=== PATIENT | male | born 1960 | race Caucasian/White ===

== ENCOUNTER → 2017-01-23 | Outpatient (CLI) | payer OTHER ==
[~2017-01-23] MED LIST: ASPI-557 PO; LOSA1TAB95 PO; NAPR220T61 PO; NEBI5TAB8 PO; TEST75GE TD
--- NOTE | 2017-01-23 17:40 | DI ---
Indication: ITS.REASON: M25.561 PAIN IN RIGHT KNEE; M25.562 PAIN IN LEFT KNEE PROCEDURE: KNEE BILAT 3 VIEWS: Encounter: Initial Comparison: None Findings: Right knee: No acute fracture or dislocation. There is lateral subluxation of the tibia relative to the femur. Moderate medial and lateral compartment joint space narrowing with mild patellofemoral compartment joint space loss. Tricompartmental osteophytes. No joint effusion. Left knee: No acute fracture or dislocation. Mild medial compartment joint space narrowing. Patellofemoral compartment and lateral compartment joint spaces are maintained. No joint effusion. Impression: Right knee: Mild to moderate tricompartmental osteoarthritis. Left knee: Mild medial osteoarthritis. .
== END ==
LOC: IMA 16:52
PROVIDERS: ATTEND Family Medicine
DX: M17.0 Bilateral primary osteoarthritis of knee (principal); M25.561 Pain in right knee; M25.562 Pain in left knee

== ENCOUNTER 2017-11-16 07:30 | Inpatient (IN) ==
[~2017-11-16 07:30] MED LIST changes: +ACETAMINOPHEN 500 MG TABLET PO ONE; -ASPI-557 PO; +DEXAMETHASONE 4 MG/ML INJECTION IVP ONE; +FAMOTIDINE PB 20 MG/50 ML BAG IV ONE; +LIDOCAINE 1% (10mg/ml) 2mL INJ PF SDV ID ONE; -LOSA1TAB95 PO; +MELOXICAM 15 MG TABLET PO ONE; +METOCLOPRAMIDE 10mg/2ml INJECTION IVP ONE; -NAPR220T61 PO; -NEBI5TAB8 PO; +ONDANSETRON 4 MG/2 ML INJECTION IVP ONE; -TEST75GE TD; +TRANEXAMIC ACID 1,000 MG in NS 100 ML IV ONE
[2017-11-16] MEDS ORDERED: EPINEPHrine PF 0.25 MG, BUPIVACAINE 0.25% PF 30 ML, MORPHINE SULFATE 15 MG, KETOROLAC I... OPSITE ONE (08:00)
[2017-11-16] MEDS ORDERED: CEFAZOLIN 1 G INJECTION IVP ONE (08:10)
[2017-11-16 08:16] VITALS: BMI 34.4
[2017-11-16] MEDS: LR 1,000 ML IV SCH ×2 (08:48→11:33)
[2017-11-16] MEDS ORDERED: SALINE FLUSH 10ml SYRINGE IV PRN (09:07)
[2017-11-16] MEDS ORDERED: NOZIN NASAL SWAB NAS ONE ×2 (09:07→13:58)
[2017-11-16] MEDS ORDERED: VANCOMYCIN 1,000 MG INJECTION ONE (10:12)
--- NOTE | 2017-11-16 10:21 | Anesthesia Preoperative Report ---
Anesthesia Preoperative Record - Date and Time Date: 11/16/17 Preoperative Diagnosis: Lt TKA M17.12 Proposed Procedure: robot assist TKA NPO Since Date: 11/16/17 NPO Since Time: 05:00 Allergies/Adverse Reactions: Allergies Allergy/AdvReac Type Severity Reaction Status Date / Time meperidine Allergy Intermediate INCREASE BP Verified 11/16/17 08:28 - Vital Signs Vital Signs: Temperature 98.0 F 11/16/17 08:15 Pulse Rate 56 L 11/16/17 08:35 Respiratory Rate 13 11/16/17 08:15 Blood Pressure 159/86 H 11/16/17 08:15 Pulse Oximetry 95 11/16/17 08:15 Height and Weight: Height 1.75 m Weight 106 kg Body Mass Index 34.4 - Medications Inpatient Medications: Current Medications Lactated Ringer's (Lactated Ringers) 1,000 mls @ 50 mls/hr IV .Q20H NIA Last Admin: 11/16/17 08:48 Dose: 50 mls/hr Sodium Chloride (Iv Flush) 10 - 80 ml IV PRN PRN PRN Reason: Fl[place] Home Medications: Home Medications Medication Instructions Recorded Confirmed Type Losartan/Hctz 100/25 [Hyzaar 1 tab PO DAILY 04/16/17 11/16/17 History 100/25] Nebivolol [Bystolic] 5 mg PO DAILY 04/16/17 11/16/17 History Nitroglycerin 0.4 mg SL Q5MIN3 PRN 04/16/17 11/16/17 History Acetaminophen [Tylenol] 1,000 mg PO Q5H PRN 10/24/17 11/16/17 History Allopurinol [Zyloprim] 300 mg PO HS 10/24/17 11/16/17 History Cholecalciferol (Vitamin D3) 1 tab PO DAILY 10/24/17 11/16/17 History [Vitamin D-400] Tramadol [Ultram] 50 mg PO Q6HR PRN 10/24/17 11/16/17 History - Medical History Respiratory: Reports: Asthma (activity induced), Sleep Apnea Cardiovascular: Reports: Angina (HX OF), Hypertension Gastrointestional: Reports: Gastroesophageal Reflux Disease Neuro/Musculoskeletal: Reports: HX.MS.OSAR, Back Problems - Surgical History HEENT Surgeries: Reports: Oral Surgery (WISDOM TEETH) Cardiac Surgeries/Treatments: Reports: Cardiac Catheterization Respiratory Surgery/Treatments: Reports: CPAP Use GI Surgery/Treatments: Reports: Colonoscopy (polyps-2 years ago) Musculoskeletal Surgery/Tx: Reports: Knee Arthroscopy (meniscus repair right knee), Other (lumbar partial discectomy-L5) - Social History Smoking Status: Never smoker Substance Use Type: does not use Alcohol Intake Frequency: holidays/special occasions only - Pertinent Findings Laboratory: CBC and BMP 11/16/17 08:15 BMP 11/16/17 08:15 Sodium 142 Potassium 3.8 Chloride 102 Carbon Dioxide 29 BUN 20.0 Creatinine 1.1 Glucose 93 Calcium 10.3 H EKG: Sinus Bradycardia - Physical Exam Respiratory Exam: Present: lungs clear Cardiovascular Exam: Present: regular rate and rhythm, no murmur - Airway Assessment Mallampati Score: I TMD: 3 Fingerbreadths Neck Extension: good Teeth: chipped teeth/crowns Overall Assessment: no airway concerns - ASA ASA Score: 2 - Plan Regional/Trunk Block: Spinal - Discussion Discussion: Discussed risks/options/alternatives of anesthesia and questions answered. Patient consents. Nursing pain assessment noted. Present for Discussion: spouse Attestation Statement: Prior to the delivery of any anesthetic medication, I examined the patient, developed the plan, obtained the patient's consent and discussed the risk and benefits of the procedure with the patient/guardian. - Additional Information Seen by Anesthesia: Yes
[2017-11-16] MEDS ORDERED: VANCOMYCIN 1,000 MG INJECTION IAR ONE ×2 (10:34→11:43)
--- NOTE | 2017-11-16 12:34 | Operative Note ---
- Procedure Preoperative Diagnosis: Left knee primary degenerative joint disease Postoperative Diagnosis: Same as preoperative diagnosis. Surgeon: Winston Mendez MD Access Manager: Avelino Mendoza Complications: None. Anesthesia: Spinal. Estimated Blood Loss: See Anesthesia Record. Fluids: Please see Anesthesia Record. Desciption of Procedure: Mr. Wadr and his left knee were identified and marked in the preoperative holding area. He was brought back to the operating suite after a saphenous nerve block was placed in the preoperative holding area. Spinal anesthetic was administered and he was placed supine on the operating table. The left lower extremity was prepped and draped in my normal sterile fashion. Timeout was performed. The [employer] robot was used during the surgery. He had a fixed varus deformity. A standard anterior midline incision followed by medial parapatellar arthrotomy was performed. Anterior fat pad and meniscus were removed. The patella was resurfaced to a size 32. Tibial and femoral arrays were placed both within the original incision. Checkpoints were then placed both in the femur and the tibia. The bone was then registered with the [employer] robot. Osteophytes were removed and gaps were captured both 90 and 0 with correction. The [employer] robotic software was utilized to obtain 18 mm gaps throughout. The [employer] robotic arm was then used to assist with the bone cuts. Posterior osteophytes and remaining meniscus were removed. Trial components were placed. We used a 6 femur and a 6 tibia with a 9 mm spacer. He tracked well and was well balanced throughout range of motion. The tibia was stamped at the proper rotation. Trial components fit well and bone quality was adequate so we proceeded with press-fit components. Components were press-fit into place. A final spacer was also placed. The knee was ranged one more time to ensure good stability, balance and patellar tracking. 1 g of vancomycin powder was then placed into the knee joint. The capsulotomy was then closed with #1 Vicryl. I then left my aquatics assistant department head to close the subcutaneous tissue with 2-0 Vicryl. Running 4-0 Monocryl will be used in the subcuticular layer. Dermabond will be used on the skin followed by sterile dressing. After drapes are removed patient will be taken to recovery room under the care of anesthesia.
--- NOTE | 2017-11-16 13:49 | Anesthesia Postoperative Note ---
- Date and Time Date: 11/16/17 Time: 13:49 - Status Patient Participated in Evaluation: Patient Participated in Person Vital Signs: Temperature 97.4 F 11/16/17 13:45 Pulse Rate 56 L 11/16/17 13:45 Respiratory Rate 20 11/16/17 13:45 Blood Pressure 105/65 11/16/17 13:45 Pulse Oximetry 99 11/16/17 13:45 Respiratory Function: Airway Patent Cardiovascular Function: Regular Pulse EKG: Sinus Rhythm Mental Status: Alert and Oriented Pain Intensity: 0 Hydration: IV Infusing Complications During Recover: None Apparent - Follow-Up Instructions Instructions: Per Surgeon
[2017-11-16] MEDS ORDERED: ONDANSETRON 4 MG/2 ML INJECTION IVP PRN (13:58)
[2017-11-16] MEDS ORDERED: LORazepam 1 MG TABLET PO PRN (13:58)
[2017-11-16] MEDS ORDERED: DiphenhydrAMINE 50 MG/ML INJECTION IVP PRN (13:58)
[2017-11-16] MEDS ORDERED: NITROGLYCERIN 0.4 MG SUBLINGUAL TABLET SL PRN (13:58)
[2017-11-16] MEDS ORDERED: DiphenhydrAMINE 25 MG CAPSULE PO PRN (13:58)
[2017-11-16] MEDS ORDERED: NAPROXEN 220 MG TABLET PO PRN (13:58)
[2017-11-16] MEDS: ACETAMINOPHEN 325 MG TABLET PO SCH ×3 (14:05→22:22)
[2017-11-16] MEDS: NS 1,000 ML IV SCH (14:05)
[2017-11-16] MEDS: NOZIN NASAL SWAB NAS SCH ×2 (14:06→22:21)
--- NOTE | 2017-11-16 14:12 | XRay Report ---
Indication: postoperative image PROCEDURE: XR knee LT 2V: Encounter: Initial Comparison: August 21, 2017 Findings: Postoperative changes of left total knee replacement are seen. There is expected postoperative subcutaneous gas. No evidence of hardware failure or acute fracture. No retained radiopaque surgical instruments or sponges. Overlying material causing artifact. Impression: New left total knee prosthesis without evidence of immediate complication. .
[2017-11-16] MEDS: CEFAZOLIN 2 G in NS 100 ML IV SCH (18:40)
[2017-11-16] MEDS: DEXAMETHASONE 20 MG/5 ML INJECTION IVP SCH (18:40)
[2017-11-16] MEDS ORDERED: SENNOSIDES 8.6 MG TABLET PO SCH (21:00)
[2017-11-16] MEDS ORDERED: ALLOPURINOL 300 MG TABLET PO SCH (21:00)
[2017-11-16] MEDS: DOCUSATE SODIUM 100 MG CAPSULE PO SCH (22:21)
[2017-11-16] MEDS: Oxycodone *IR* 5 MG TABLET PO PRN (22:22)
[2017-11-16] MEDS: ASPIRIN *EC* 81 MG TABLET PO SCH (22:22)
[2017-11-17] MEDS: CEFAZOLIN 2 G in NS 100 ML IV SCH (03:21)
[2017-11-17] MEDS: NS 1,000 ML IV SCH (03:21)
[2017-11-17] MEDS: DEXAMETHASONE 20 MG/5 ML INJECTION IVP SCH (03:22)
[2017-11-17] MEDS: Oxycodone *IR* 5 MG TABLET PO PRN ×3 (03:30→14:26)
[2017-11-17] MEDS: NOZIN NASAL SWAB NAS SCH (05:58)
[2017-11-17 07:46] VITALS: RESP 12
--- NOTE | 2017-11-17 07:56 | Orthopedic Progress Note ---
Date: Date: 11/17/17 Time: 753 Subjective/Severity of Illness: Doing well. Minimal pain. He has been mobile with good tolerance. Labs look good. Afebrile. VSS. He anticipates discharge later today. Orthopedic Objective PO Vital signs: Temperature 97.2 F 11/17/17 07:00 Pulse Rate 64 11/17/17 07:00 Respiratory Rate 12 11/17/17 07:00 Blood Pressure 139/65 11/17/17 07:00 Pulse Oximetry 91 11/17/17 07:00 Height and Weight: Height 5 ft 9 in Weight 246 lb 4.101 oz Body Mass Index 34.4 - Constitutional General Appearance: Present: alert, no acute distress - Respiratory Exam Present: non-labored - Cardiovascular Exam Present: pedal pulses intact - Extremities Exam Extremities: Present: pulses intact. Absent: calf tenderness - Surgical Site Incision: Mepilex dressing intact, no drainage - Integumentary Exam Present: pink, warm, dry - Neurological Exam Present: intact to light touch, no deficits - Psychiatric Exam Present: alert, normal affect - Labs Result Diagrams: 11/17/17 04:10 11/17/17 04:10 Abnormal lab results 11/16/17 11/17/17 Range/Units 08:15 04:10 BUN 23.0 H (9-20) MG/DL Glucose 147 H (75-110) MG/DL Calcium 10.3 H (8.4-10.2) MG/DL H & H 11/17/17 Range/Units 04:10 Hgb 15.6 (13.5-17.5) GM/DL Hct 46.7 (41-53) % Orthopedic Assessment and Plan (1) Primary osteoarthritis of left knee Status: Acute Assessment and Plan: Current anti-coagulation protocol for VTE prophylaxis. SCD's. PT/OT services to improve independent function. Discharge Planning per Case Management. - Anticoagulation Therapy Anticoagulation: ASA 81 mg PO BID x6 weeks Hospital Course Summary Disclaimer: The visit summary below is not to be considered part of the above Progress Note.
[2017-11-17] MEDS ORDERED: POLYETHYL GLYCOL 3350 17gm PACKET PO SCH (09:00)
[2017-11-17] MEDS: DOCUSATE SODIUM 100 MG CAPSULE PO SCH (09:37)
[2017-11-17] MEDS: ACETAMINOPHEN 325 MG TABLET PO SCH ×2 (09:38→12:43)
[2017-11-17] MEDS: ASPIRIN *EC* 81 MG TABLET PO SCH (09:38)
[2017-11-17 12:33] VITALS: BP 119/65; PULSE 57; TEMP 97.8; O2SAT 94
[2017-11-17] MEDS ORDERED: SENNOSIDES 8.6 MG TABLET PO PRN (12:56)
--- NOTE | 2017-11-17 13:10 | Discharge Summary ---
Orthopedic Discharge Info Date of admission: 11/16/17 07:52 Anticipated date of discharge: 11/17/17 Primary care physician: Andi Cantor MD Attending Physician: Magnus Mendez MD Consults: 11/16/17 08:09 Consult to Anesthesiology [CONS] Routine Reason For Exam: Preoperative Assessment 11/16/17 13:58 Case Management Consult [CONS] Routine Reason For Exam: Discharge Planning DME-Walker [CONS] Routine Height: 5 ft 9 in Weight: 233 lb 11.04 oz Total Joint Outpatient Therapy [CONS] Routine Comment: Remove dressing in 2 weeks - Discharge Diagnosis (1) Primary osteoarthritis of left knee Status: Acute - Procedures Procedures: Lt TKA - Laboratory Result Diagrams: 11/17/17 04:10 11/17/17 04:10 Laboratory: Abnormal lab results 11/17/17 Range/Units 04:10 BUN 23.0 H (9-20) MG/DL Glucose 147 H (75-110) MG/DL H & H 11/17/17 Range/Units 04:10 Hgb 15.6 (13.5-17.5) GM/DL Hct 46.7 (41-53) % Orthopedic Discharge HPI - HPI Comments This patient was admitted for elective surgical tx of end stage degenerative joint disease that failed to respond to conservative treatment. Further details of this is found in the admission H&P. Orthopedic Hospital Course Hospital course: 11/17/17 13:07 After appropriate preoperative clearance and signing of operative consent, the patient was given IV antibiotics, according to orthopedic protocol. The patient was taken to the operating room and underwent elective left total knee arthroplasty. Following surgery, antibiotics were discontinued less than 24 hours according to joint protocol. Appropriate anticoagulants were initiated and SCDs added for DVT prevention. The dressing was clean, dry, and intact. Pain control was obtained via multimodal approach. Bowel motivation addressed with scheduled and PRN medications. Early mobilization was initiated through PT services. Discharge arrangements made by a collaborative effort between the patient and Case Management. Follow-up is scheduled in 2-3 weeks. Discharge instructions given by orthopedic providers and nursing staff at discharge. Discharge condition was good. Care extended to > 2 midnight stays?: No Discharge Plan - Med Rec/Dispo Referrals/Follow Up: Magnus Mendez MD [Physician] - 12/11/17 3:15 pm [facility] Instructions: [facility] Postop Instructions Prescriptions: New Aspirin *EC* [Ecotrin] 81 mg PO BID tablet Docusate Sodium [Colace] 100 mg PO BID capsule Milk of Magnesia [Mom] 30 ml PO DAILY udc Naproxen [Aleve] 440 mg PO BID PRN tablet PRN Reason: Pain PEG 3350 17gm PACKET [Miralax] 17 gm PO DAILY packet Acetaminophen [Tylenol] 650 mg PO QID tablet Oxycodone *IR* [Roxicodone *Ir*] 5 - 15 mg PO Q3H PRN #60 tab PRN Reason: Breakthrough Pain Continue Nebivolol [Bystolic] 5 mg PO DAILY Nitroglycerin 0.4 mg SL Q5MIN3 PRN PRN Reason: Chest Pain Allopurinol [Zyloprim] 300 mg PO HS Tramadol [Ultram] 50 mg PO Q6HR PRN PRN Reason: Pain Losartan/Hctz 100/25 [Hyzaar 100/25] 1 tab PO DAILY Cholecalciferol (Vitamin D3) [Vitamin D-400] 1 tab PO DAILY ergocalciferol (vitamin D2) 50,000 unit capsule 50,000 unit PO DAILY #2 cap Discontinued Acetaminophen [Tylenol] 1,000 mg PO Q5H PRN PRN Reason: Pain - Disposition 01 Discharged Home, Self-Care - Dismissal Complete Discharge Instructions are:: Complete
[2017-11-18] MEDS ORDERED: BISACODYL 10 MG SUPPOSITORY RECTALLY SCH (20:00)
== END 2017-11-17 14:35 | disposition home or self-care (01) | DRG 470 ==
LOC: SRG 07:52 → EDSTATUS 13:00
PROVIDERS: ADMIT Orthopaedic Surgery; ATTEND Orthopaedic Surgery

== ENCOUNTER 2018-04-05 05:21 | Inpatient (IN) ==
[2018-04-05 05:51] VITALS: BMI 34.5
[2018-04-05] MEDS ORDERED: METOCLOPRAMIDE 10mg/2ml INJECTION IVP ONE (06:00)
[2018-04-05] MEDS ORDERED: ONDANSETRON 4 MG/2 ML INJECTION IVP ONE (06:00)
[2018-04-05] MEDS ORDERED: LIDOCAINE 1% (10mg/ml) 2mL INJ PF SDV ID ONE (06:00)
[2018-04-05] MEDS ORDERED: ACETAMINOPHEN 500 MG TABLET PO ONE (06:00)
[2018-04-05] MEDS: NS 1,000 ML IV SCH ×3 (06:00→11:18)
[2018-04-05] MEDS ORDERED: DEXAMETHASONE 4 MG/ML INJECTION IVP ONE (06:00)
[2018-04-05] MEDS ORDERED: TRANEXAMIC ACID 1,000 MG in NS 100 ML IV ONE ×2 (06:00→07:00)
[2018-04-05] MEDS ORDERED: FAMOTIDINE PB 20 MG/50 ML BAG IV ONE (06:00)
[2018-04-05] MEDS: NOZIN NASAL SWAB NAS SCH ×5 (06:15→21:04)
[2018-04-05] MEDS ORDERED: VANCOMYCIN 1,000 MG INJECTION ONE (06:53)
[2018-04-05] MEDS ORDERED: CEFAZOLIN 1 G INJECTION IVP ONE (07:00)
[2018-04-05] MEDS ORDERED: EPINEPHrine PF 0.25 MG, BUPIVACAINE 0.25% PF 30 ML, KETOROLAC INJ 60 MG in NS 30 ML OPSITE ONE (08:00)
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
[2018-04-05] MEDS ORDERED: ANESTHESIA MIXTURE 50 ML IV ONE (08:15)
[2018-04-05] MEDS ORDERED: MIDAZOLAM 2mg/2ml INJECTION ONE ×2 (08:24→08:42)
[2018-04-05] MEDS ORDERED: LIDOCAINE 1% (10mg/ml) 30ml SDV INJ ONE (08:26)
[2018-04-05] MEDS ORDERED: BUPIVACAINE 0.75%/DEXTROSE 8.5% SPINAL 2 ML AMPULE IJ ONE (08:26)
[2018-04-05] MEDS ORDERED: VANCOMYCIN 1,000 MG INJECTION IAR ONE (08:51)
[2018-04-05] MEDS ORDERED: FentaNYL 100 MCG/2 ML INJECTION IVP PRN (09:06)
[2018-04-05] MEDS ORDERED: METOCLOPRAMIDE 10mg/2ml INJECTION IVP PRN (09:06)
[2018-04-05] MEDS ORDERED: ROPIVACAINE 0.5% (5mg/ml) 30ml INJ ONE (09:41)
--- NOTE | 2018-04-05 10:05 | Operative Note ---
- Procedure Preoperative Diagnosis: Right knee primary degenerative joint disease Postoperative Diagnosis: Same as preoperative diagnosis. Surgeon: Winston Mendez MD Shanker Out: Kecia Haddad Complications: None. Anesthesia: Spinal. Estimated Blood Loss: See Anesthesia Record. Fluids: Please see Anesthesia Record. Description of Procedure: Mr. Ward and his right knee were identified and marked in the preoperative holding area. He was brought back to the operating suite. Spinal anesthetic was administered and he was placed supine on the operating table. The right lower extremity was prepped and draped in my normal sterile fashion. Timeout was performed. The [employer] robotic arm was used during the surgery. He had a correctable varus deformity. A standard anterior midline incision followed by medial parapatellar arthrotomy was performed. Anterior fat pad and meniscus were removed. The patella was everted and a patellar osteotomy was performed leaving 15 mm of bone. There was complete loss of bone on the medial femoral condyle and grade 3 chantge to the entire patella. Tibial and femoral arrays and checkpoints were placed both within the original incision. The bone was then registered with the [employer] robot. Osteophytes were removed and gaps were captured both 90 and 0 with correction. The knee was balanced by externally rotating the femoral component and moving it anterior and superior 1mm each. Gaps were 18. The [employer] robotic arm was then used to assist with the bone cuts. Posterior osteophytes and remaining meniscus were removed. Trial components were placed. We used a 6 femur and a 6 tibia with a 9 mm spacer and a 32 patella. He tracked well and was well balanced throughout range of motion.
--- NOTE | 2018-04-05 10:46 | Anesthesia Procedure Note ---
Peripheral Nerve Blockade - Procedure Physician: Magnus Mendez MD Date: 04/05/18 Discussion: Discussed risks/options/alternatives of anesthesia and questions answered. Patient consents. Nursing pain assessment noted. Block Start: 10:36 Block Stop: 10:38 Blocked Employed: Adductor Canal, Single Injection Indication: Post-Operative Pain Approach: Right Side Confirmed Position: Supine Patient: Consent, Risks/Benefits Discussed, Informed, Post Block Act. Discussed IV Sedation: No (post spinal anesthetic) Sedation: Awake Initial Vital Signs: Temperature 98.3 F 04/05/18 05:50 Temperature Source Oral 04/05/18 05:50 Pulse Rate 58 L 04/05/18 05:50 Respiratory Rate 16 04/05/18 05:50 Blood Pressure 144/86 H 04/05/18 05:50 Blood Pressure Mean 105 04/05/18 05:50 Blood Pressure Position Sitting 04/05/18 05:50 Pulse Oximetry 93 04/05/18 05:50 Oxygen Delivery Method 04/05/18 05:50 Post Vital Signs: Temperature 98.3 F 04/05/18 05:50 Pulse Rate 57 L 04/05/18 06:06 Respiratory Rate 16 04/05/18 05:50 Blood Pressure 144/86 H 04/05/18 05:50 Pulse Oximetry 93 04/05/18 05:50 Prep: Chlorhexadine/ETOH, Sterile Technique Ultrasound Used?: Yes - Nerve Simulator Muscle Response: No Paresthesia/Pain: None - Injectate Ropivacaine (%): 0.5 Ropivacaine (mL): 15 Was Epi 1:200,000 Used?: No Injection: Injection made incrementally with constant monitoring and aspiration every 5 ml
--- NOTE | 2018-04-05 10:47 | Anesthesia Procedure Note ---
Peripheral Nerve Blockade - Procedure Physician: Magnus Mendez MD Date: 04/05/18 Discussion: Discussed risks/options/alternatives of anesthesia and questions answered. Patient consents. Nursing pain assessment noted. Block Start: 10:39 Block Stop: 10:41 Blocked Employed: Single Injection, Other (IPACK) Indication: Post-Operative Pain Approach: Right Side Confirmed Position: Supine Patient: Consent, Risks/Benefits Discussed, Informed, Post Block Act. Discussed IV Sedation: No (post spinal anesthetic) Sedation: Awake Initial Vital Signs: Temperature 98.3 F 04/05/18 05:50 Temperature Source Oral 04/05/18 05:50 Pulse Rate 58 L 04/05/18 05:50 Respiratory Rate 16 04/05/18 05:50 Blood Pressure 144/86 H 04/05/18 05:50 Blood Pressure Mean 105 04/05/18 05:50 Blood Pressure Position Sitting 04/05/18 05:50 Pulse Oximetry 93 04/05/18 05:50 Oxygen Delivery Method 04/05/18 05:50 Post Vital Signs: Temperature 98.3 F 04/05/18 05:50 Pulse Rate 57 L 04/05/18 06:06 Respiratory Rate 16 04/05/18 05:50 Blood Pressure 144/86 H 04/05/18 05:50 Pulse Oximetry 93 04/05/18 05:50 Prep: Chlorhexadine/ETOH, Sterile Technique Ultrasound Used?: Yes - Nerve Simulator Muscle Response: No Paresthesia/Pain: None - Injectate Ropivacaine (%): 0.5 Ropivacaine (mL): 15 Was Epi 1:200,000 Used?: No Injection: Injection made incrementally with constant monitoring and aspiration every 5 ml
[2018-04-05] MEDS ORDERED: DiphenhydrAMINE 50 MG/ML INJECTION IVP PRN (11:01)
[2018-04-05] MEDS ORDERED: DiphenhydrAMINE 25 MG CAPSULE PO PRN (11:01)
[2018-04-05] MEDS ORDERED: NOZIN NASAL SWAB NAS ONE (11:01)
[2018-04-05] MEDS ORDERED: LORazepam 1 MG TABLET PO PRN (11:01)
[2018-04-05] MEDS ORDERED: ONDANSETRON 4 MG/2 ML INJECTION IVP PRN (11:01)
[2018-04-05] MEDS ORDERED: NITROGLYCERIN 0.4 MG SUBLINGUAL TABLET SL PRN (11:01)
--- NOTE | 2018-04-05 11:01 | Anesthesia Postoperative Note ---
- Date and Time Date: 04/05/18 Time: 11:00 - Status Patient Participated in Evaluation: Patient Participated in Person Vital Signs: Temperature 98.3 F 04/05/18 05:50 Pulse Rate 63 04/05/18 10:55 Respiratory Rate 13 04/05/18 10:55 Blood Pressure 129/71 04/05/18 10:55 Pulse Oximetry 91 04/05/18 10:55 Respiratory Function: Airway Patent, Regular Respirations Cardiovascular Function: Regular Pulse Mental Status: Alert and Oriented Pain Intensity: 0 Hydration: IV Infusing Complications During Recover: None Apparent Post Anesthesia Care Notes: moves bilateral feet - Follow-Up Instructions Instructions: Per Surgeon
--- NOTE | 2018-04-05 11:08 | XRay Report ---
Indication: postoperative image PROCEDURE: XR knee RT 2V: Encounter: Initial Comparison: January 01, 2018 Findings: Postoperative changes of right total knee replacement are seen. There is expected postoperative subcutaneous gas. No evidence of hardware failure or acute fracture. No retained radiopaque surgical instruments or sponges. Overlying material causing artifact. Impression: New right total knee prosthesis without evidence of immediate complication. .
[2018-04-05] MEDS ORDERED: SALINE FLUSH 10ml SYRINGE IV PRN (11:57)
[2018-04-05] MEDS: ACETAMINOPHEN 325 MG TABLET PO SCH ×3 (12:41→21:04)
[2018-04-05] MEDS: Oxycodone *IR* 5 MG TABLET PO PRN (15:28)
[2018-04-05] MEDS ORDERED: CEFAZOLIN 2 G in NS 100 ML IV SCH (16:30)
[2018-04-05] MEDS: CEFAZOLIN 2 G in NS 100 ML IV SCH (16:34)
[2018-04-05] MEDS ORDERED: SENNOSIDES 8.6 MG TABLET PO SCH (21:00)
[2018-04-05] MEDS: DOCUSATE SODIUM 100 MG CAPSULE PO SCH (21:04)
[2018-04-05] MEDS: ASPIRIN *EC* 81 MG TABLET PO SCH (21:05)
[2018-04-06] MEDS: NS 1,000 ML IV SCH ×2 (00:04→12:02)
[2018-04-06] MEDS: CEFAZOLIN 2 G in NS 100 ML IV SCH (00:04)
[2018-04-06] MEDS: Oxycodone *IR* 5 MG TABLET PO PRN (03:37)
[2018-04-06] MEDS: NOZIN NASAL SWAB NAS SCH ×2 (06:00→13:52)
[2018-04-06 07:21] VITALS: RESP 16; O2SAT 96
--- NOTE | 2018-04-06 07:54 | Orthopedic Progress Note ---
Date: Date: 04/06/18 Time: 750 Subjective/Severity of Illness: Mr. Ward is lying in bed this morning on rounds. He reports he did well overnight, pain has been well controlled with Roxicodone. Denies any CP, SOA, nausea. Tolerating PO well. Hgb 15.9 Orthopedic Exam Vital signs: Temperature 97.1 F 04/06/18 07:00 Pulse Rate 66 04/06/18 07:00 Respiratory Rate 16 04/06/18 07:00 Blood Pressure 129/70 04/06/18 07:00 Pulse Oximetry 96 04/06/18 07:00 - Constitutional General Appearance: Present: alert, orientated x3, cooperative, no acute distress, well developed, well nourished - Respiratory Exam Present: non-labored - Cardiovascular Exam Present: pedal pulses intact - Extremities Exam Present: pulses intact. Absent: calf tenderness - Dressing Dressing: dry, intact, no drainage Comments: mepilex dressing right knee - Integumentary Exam Present: pink, warm, dry - Neurological Exam Present: intact to light touch, no deficits - Psychiatric Exam Present: alert, oriented, normal affect, attentive - Labs Result Diagrams: 04/06/18 04:01 04/06/18 04:01 Abnormal lab results 04/06/18 Range/Units 04:01 BUN 21.0 H (9-20) MG/DL Glucose 127 H (75-110) MG/DL Specimen Hemolysis 31 H (0-25) H & H 04/05/18 04/06/18 Range/Units 06:00 04:01 Hgb 18.2 H 15.9 D (13.5-17.5) GM/DL Hct 52.8 46.1 D (41-53) % Orthopedic Assessment and Plan (1) Primary osteoarthritis of right knee Status: Acute Assessment and Plan: Current anti-coagulation protocol with ASA 81mg BID x 6 weeks for VTE prophylaxis. SCD's for added protection PT/OT services to improve independent function. Discharge Planning per Case Management. - Anticoagulation Therapy Anticoagulation: ASA 81 mg PO BID x6 weeks - Additional Diagnoses Hypertension: stable, resume medications Anemia: no intervention required, patient was asymptomatic, labs monitored CKD: labs monitored and stable Hospital Course Summary Disclaimer: The visit summary below is not to be considered part of the above Progress Note.
--- NOTE | 2018-04-06 07:57 | Discharge Summary ---
Orthopedic Discharge Info Date of admission: 04/05/18 05:40 Anticipated date of discharge: 04/06/18 Primary care physician: Andi Cantor MD Attending Physician: Magnus Mendez MD Consults: 04/05/18 05:40 Consult to Anesthesiology [CONS] Routine Reason For Exam: Preoperative Assessment 04/05/18 11:01 Case Management Consult [CONS] Routine Reason For Exam: Discharge Planning DME-Walker [CONS] Routine Height: 5 ft 9 in Weight: 106.1 kg Total Joint Outpatient Therapy [CONS] Routine Comment: Remove dressing in 2 weeks - Discharge Diagnosis (1) Primary osteoarthritis of right knee Status: Acute - Procedures Procedures: Procedures Replacement of Left Knee Joint with Synthetic Substitute, Uncemented, Open Approach (11/16/17) Robotic Assisted Procedure of Lower Extremity, Open Approach (11/16/17) - Laboratory Result Diagrams: 04/06/18 04:01 04/06/18 04:01 Laboratory: Abnormal lab results 04/06/18 Range/Units 04:01 BUN 21.0 H (9-20) MG/DL Glucose 127 H (75-110) MG/DL Specimen Hemolysis 31 H (0-25) H & H 04/05/18 04/06/18 Range/Units 06:00 04:01 Hgb 18.2 H 15.9 D (13.5-17.5) GM/DL Hct 52.8 46.1 D (41-53) % Orthopedic Discharge HPI - HPI Comments This patient was admitted for elective surgical tx of end stage degenerative joint disease that failed to respond to conservative treatment. Further details of this is found in the admission H&P. Orthopedic Hospital Course Hospital course: 04/06/18 07:54 After appropriate preoperative clearance and signing of operative consent, the patient was given IV antibiotics, according to orthopedic protocol. The patient was taken to the operating room and underwent elective right total knee arthroplasty. Following surgery, antibiotics were discontinued less than 24 hours according to joint protocol. Appropriate anticoagulants were initiated with ASA 81mg BID x 6 weeks and SCDs added for DVT prevention. The dressing was clean, dry, and intact. Pain control was obtained via multimodal approach. Bowel motivation addressed with scheduled and PRN medications. Early mobilization was initiated through PT services. Discharge arrangements made by a collaborative effort between the patient and Case Management. 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 Anemia- labs monitored, no intervention required. Schedule medical follow up with PCP in 1 week. Follow-up is scheduled in 2-3 weeks. Discharge instructions given by orthopedic providers and nursing staff at discharge. Discharge condition was good. Care extended to > 2 midnight stays?: No Discharge Plan - Med Rec/Dispo Referrals/Follow Up: Magnus Mendez MD [Physician] - Kecia Haddad, VITO [Advanced Practice Nurse] - 04/30/18 2:45 pm Andi Cantor MD [Primary Care Provider] - 1 Week [place]nam Instructions: [facility] [place] Ortho Postop Instructions Additional Instructions: [facility] ON 04/09/2018 AT 4:45PM FOR PHYSICAL THERAPY EVAL WITH LARISA. PLEASE COMPLETE THE PAPERWORK IN THE [facility] [place] FOLDER PRIOR TO THE APPOINTMENT. PHONE [phone] Prescriptions: New Acetaminophen [Tylenol] 650 mg PO QID tab Aspirin *EC* [Ecotrin] 81 mg PO BID tab Docusate Sodium [Colace] 100 mg PO BID cap Milk of Magnesia [Mom] 30 ml PO DAILY udc Oxycodone *IR* [Roxicodone *Ir*] 5 - 15 mg PO Q3H PRN #60 tab PRN Reason: Breakthrough Pain PEG 3350 17gm PACKET [Miralax] 17 gm PO DAILY packet Continue Nebivolol [Bystolic] 5 mg PO DAILY Nitroglycerin 0.4 mg SL Q5MIN3 PRN PRN Reason: Chest Pain Allopurinol [Zyloprim] 300 mg PO DAILY Acetaminophen [Tylenol] 1,000 mg PO Q8H PRN PRN Reason: Pain Cholecalciferol (Vitamin D3) [Vitamin D3] 1 cap PO DAILY Losartan/Hctz 100/25 [Hyzaar 100/25] 1 tab PO DAILY Aspirin [Adult Low Dose Aspirin EC] 81 mg PO DAILY Docusate Sodium [Colace] 1 cap PO BID - Disposition 01 Discharged Home, Self-Care - Dismissal Complete Discharge Instructions are:: Incomplete
[2018-04-06] MEDS: DOCUSATE SODIUM 100 MG CAPSULE PO SCH (08:19)
[2018-04-06] MEDS: ACETAMINOPHEN 325 MG TABLET PO SCH ×2 (08:20→13:52)
[2018-04-06] MEDS: ASPIRIN *EC* 81 MG TABLET PO SCH (08:20)
[2018-04-06] MEDS ORDERED: POLYETHYL GLYCOL 3350 17gm PACKET PO SCH (09:00)
[2018-04-06] MEDS ORDERED: ALLOPURINOL 300 MG TABLET PO SCH (09:00)
[2018-04-06] MEDS ORDERED: SENNOSIDES 8.6 MG TABLET PO PRN (10:18)
[2018-04-06 12:03] VITALS: BP 110/65; PULSE 68; TEMP 96.6
[2018-04-06] MEDS ORDERED: FALL RISK - PHARMACY CONSULT MC ONE (12:40)
[2018-04-07] MEDS ORDERED: BISACODYL 10 MG SUPPOSITORY RECTALLY SCH (20:00)
== END 2018-04-06 14:20 | disposition home or self-care (01) | DRG 470 ==
LOC: NMC.PERIOP 05:21 → SRG 11:02
PROVIDERS: ADMIT Orthopaedic Surgery; ATTEND Orthopaedic Surgery